=== PATIENT | female | born 2000 | race Caucasian/White ===

== ENCOUNTER 2021-08-28 20:09 | Emergency (ER) | payer SELFPAY ==
[~2021-08-28] VITALS: Ht 170.2 cm; Wt 67.0 kg
[2021-08-28] MEDS ORDERED: IBUPROFEN 600 MG TABLET PO ONE (20:30)
[2021-08-28] MEDS ORDERED: ONDANSETRON HCL 4 MG TABLET PO ONE (21:00)
[2021-08-28] MEDS ORDERED: AMOX500T2 PO (22:15)
[2021-08-28 22:30] VITALS: BP 121/77
== END 2021-08-28 22:58 | disposition home or self-care (01) ==
LOC: EMS 20:12
DX: J02.9 Acute pharyngitis, unspecified (principal)
CPT/HCPCS: 99283; Q0162